=== PATIENT | male | born 1960 | race Asian ===

== ENCOUNTER 2017-02-10 18:33 | Emergency (ER) | payer OTHER ==
[~2017-02-10] VITALS: Ht 165.1 cm; Wt 65.9 kg
[~2017-02-10 18:33] MED LIST: HYDR25TA PO
[2017-02-10] MEDS ORDERED: LOSA50TA37 PO (18:54)
[2017-02-10] MEDS ORDERED: AMLO-512 PO (18:54)
[2017-02-10] MEDS ORDERED: MORPHINE SULFATE 4 MG/ML SYRINGE IM ONE (22:30)
[2017-02-10] MEDS ORDERED: CYCLOBENZAPRINE HCL 10 MG TABLET PO ONE (22:30)
[2017-02-10 23:29] VITALS: BP 132/83
== END 2017-02-11 00:08 | disposition home or self-care (01) ==
LOC: EMS 18:36
DX: M54.5 Low back pain (principal); I10 Essential (primary) hypertension; F17.210 Nicotine dependence, cigarettes, uncomplicated
CPT/HCPCS: 72100; 96372; 99284; J2270